=== PATIENT | female | born 1985 | race Caucasian/White ===

== ENCOUNTER 2019-09-11 15:11 | Emergency (ER) | payer OTHER ==
[~2019-09-11] VITALS: Ht 154.9 cm; Wt 82.6 kg
[2019-09-11 17:32] LABS: BASOPHILS # (AUTO) 0.1 (0.0-0.1); BASOPHILS % 0.4 % (0.0-1.0); HEMATOCRIT 39.8 % (34.2-44.1); HEMOGLOBIN 13.4 g/dL (12.0-16.0); LYMPHOCYTES # (AUTO) 1.7 (1.0-3.2); LYMPHOCYTES % 15.3 % (18.0-39.1); MEAN CORPUSCULAR HEMOGLOBIN 29.9 pg (28-32); MEAN CORPUSCULAR HGB CONC 33.7 g/dL (31-35); MEAN CORPUSCULAR VOLUME 88.8 fL (81-99); MONOCYTES # (AUTO) 0.4 (0.2-0.8); MONOCYTES % 3.4 % (4.4-11.3); NEUTROPHILS % 79.2 % (38.7-80.0); PLATELET COUNT 201 x10e3/uL (140-360); RED BLOOD COUNT 4.48 x10e6/uL (3.6-5.1); RED CELL DISTRIBUTION WIDTH 13.1 % (11.7-14.4)
[2019-09-11 17:40] LABS: CLARITY,URINE CLEAR (CLEAR); COLOR,URINE YELLOW (YELLOW); LEUKOCYTE ESTERASE ,URINE NEGATIVE (NEGATIVE); NITRITE,URINE NEGATIVE (NEGATIVE); PROTEIN,URINE DIPSTICK 1+ (NEGATIVE)
[2019-09-11 17:41] LABS: BILIRUBIN,URINE NEGATIVE (NEGATIVE); KETONES,URINE NEGATIVE (NEGATIVE); URINE UROBILINOGEN 1 mg/dL (0.2 - 1)
[2019-09-11 17:50] LABS: ALANINE AMINOTRANSFERASE 351 IU/L (0-55); ALBUMIN 3.7 g/dL (3.5-5.0); ALBUMIN/GLOBULIN RATIO 0.9 (0.8-2.0); ALKALINE PHOSPHATASE 152 IU/L (40-150); ANION GAP 14.5 mmol/L (8-16); BLOOD UREA NITROGEN 10 mg/dL (7-26); BUN/CREATININE RATIO 13 (6-25); CALCIUM 9.3 mg/dL (8.4-10.2); CARBON DIOXIDE 27 mmol/L (22-29); CHLORIDE 100 mmol/L (98-107); CREATINE KINASE 69 IU/L (29-168); CREATININE, SERUM 0.75 mg/dL (0.57-1.11); EST GLOMERULAR FILTRATION RATE > 60 ML/MIN (60-); GLUCOSE 136 mg/dL (74-118); POTASSIUM 3.5 mmol/L (3.5-5.1); SODIUM 138 mmol/L (136-145)
[2019-09-11 17:54] LABS: BACTERIA,URINE MANY /HPF; RBC,URINE 0-5 /HPF (0-5)
[2019-09-11 17:55] LABS: EPITHELIAL CELLS,URINE MODERATE /LPF
--- NOTE | 2019-09-11 18:00 | Diagnostic Imaging Report ---
EXAMINATION: CHEST SINGLE (NOT PORTABLE) INDICATION: ^Y ^FEVER ^[id number] ^[id number] COMPARISON: None FINDINGS: AP view TUBES and LINES: None. LUNGS/PLEURA: Lungs are well inflated. There is no evidence of pneumonia or pulmonary edema.. There is no pleural effusion or pneumothorax. HEART AND MEDIASTINUM: The cardiomediastinal silhouette is unremarkable. BONES AND SOFT TISSUES: No acute osseous lesion. Soft tissues are unremarkable. UPPER ABDOMEN: No free air under the diaphragm. IMPRESSION: No acute thoracic abnormality. Signed by: Last Doan MD on 09/11/2019 5:57 PM
[2019-09-11] MEDS ORDERED: SODIUM CHLORIDE 0.9% 1000ML 1,000 ML IV STA ×2 (18:08)
--- NOTE | 2019-09-11 18:21 | Emergency Department Note ---
History of Present Illnes History of Present Illness Chief Complaint: General Medicine Complaints History of Present Illness This is a 33 year old female arrived to the ED with complaints of generalized malaise and weakness. Patient states she is unable to drink enough fluids and feels very weak and lethargic. Patient states he tested positive for the flu last week. Chief Complaint Comment HERE FOR DEHYDRATION AFTER BEING DIAGNOSED WITH FLU LAST WEEK. ALSO REPORTS LOWER BACK PAIN. STATES THAT SHE IS UNABLE TO REHYDRATE AT HOME, DENIES NAUSEA, VOMITING, OR DIARRHEA. Historian: Patient Arrival Mode: Car Onset (how long ago): day(s) Onset quality: gradual Duration (how long): day(s) Timing of current episode: constant Progression: worsening Chronicity: new Context: Reports recent illness Relieving factors: none Exacerbating factors: none Associated symptoms: Reports fever/chills, Reports loss of appetite, Reports nausea/vomiting Past Medical/Family History Physician Review I have reviewed the patient's past medical and family history. Any updates have been documented here. Past Medical History Recent Fever: No Clinical Suspicion of Infectio: No New/Unexplained Change in Ment: No Past Medical History: None Past Surgical History: Cholecysctectomy Review of Systems Review of Systems Constitutional: Reports as per HPI, Reports chills, Reports fever, Reports weakness EENTM: Reports no symptoms Cardiovascular: Reports no symptoms Respiratory: Reports no symptoms Gastrointestinal: Reports no symptoms Genitourinary: Reports no symptoms Musculoskeletal: Reports no symptoms Integumentary: Reports no symptoms Neurological: Reports no symptoms Psychological: Reports no symptoms Endocrine: Reports no symptoms Hematological/Lymphatic: Reports no symptoms Physical Exam Related Data Allergies: Coded Allergies: codeine (Verified Adverse Reaction, Severe, HEADACHE, 09/11/19) Triage Vital Signs Vital Signs Date Time Temp Pulse Resp B/P (MAP) Pulse Ox O2 Delivery O2 Flow Rate FiO2 09/11/19 16:21 98.3 115 16 133/90 99 Vital signs reviewed: Yes Physical Exam CONSTITUTIONAL Constitutional: Present well-developed, Present well-nourished HENT HENT: Present normocephalic, Present atraumatic, Present oropharynx clear/moist, Present nose normal HENT L/R: Present left ext ear normal, Present right ext ear normal EYES Eyes: Reports PERRL, Reports conjunctivae normal NECK Neck: Present ROM normal PULMONARY Pulmonary: Present effort normal, Present breath sounds normal CARDIOVASCULAR Cardiovascular: Present regular rhythm, Present heart sounds normal, Present capillary refill normal, Present normal rate GASTROINTESTINAL Abdominal: Present soft, Present nontender, Present bowel sounds normal GENITOURINARY Genitourinary: Present exam deferred SKIN Skin: Present warm, Present dry MUSCULOSKELETAL Musculoskeletal: Present ROM normal NEUROLOGICAL Neurological: Present alert, Present oriented x 3, Present no gross motor or sensory deficits PSYCHOLOGICAL Psychological: Present mood/affect normal, Present judgement normal Results Laboratory Result Diagram: 09/11/193 09/11/193 Laboratory Laboratory Tests Test 09/11/19 16:53 White Blood Count 11.32 x10e3/uL (4.8-10.8) Red Blood Count 4.48 x10e6/uL (3.6-5.1) Hemoglobin 13.4 g/dL (12.0-16.0) Hematocrit 39.8 % (34.2-44.1) Mean Corpuscular Volume 88.8 fL (81-99) Mean Corpuscular Hemoglobin 29.9 pg (28-32) Mean Corpuscular Hemoglobin Concent 33.7 g/dL (31-35) Red Cell Distribution Width 13.1 % (11.7-14.4) Platelet Count 201 x10e3/uL (140-360) Neutrophils (%) (Auto) 79.2 % (38.7-80.0) Lymphocytes (%) (Auto) 15.3 % (18.0-39.1) Monocytes (%) (Auto) 3.4 % (4.4-11.3) Eosinophils (%) (Auto) 0.0 % (0.0-6.0) Basophils (%) (Auto) 0.4 % (0.0-1.0) Neutrophils # (Auto) 9.0 (2.1-6.9) Lymphocytes # (Auto) 1.7 (1.0-3.2) Monocytes # (Auto) 0.4 (0.2-0.8) Eosinophils # (Auto) 0.0 (0.0-0.4) Basophils # (Auto) 0.1 (0.0-0.1) Absolute Immature Granulocyte (auto 0.19 x10e3/uL (0-0.1) Urine Color Yellow (YELLOW) Urine Clarity Clear (CLEAR) Urine pH 6 (5 - 7) Urine Specific [place] 1.020 (1.010-1.025) Urine Protein 1+ (NEGATIVE) Urine Glucose (UA) Negative (NEGATIVE) Urine Ketones Negative (NEGATIVE) Urine Blood Negative (NEGATIVE) Urine Nitrite Negative (NEGATIVE) Urine Bilirubin Negative (NEGATIVE) Urine Urobilinogen 1 mg/dL (0.2 - 1) Urine Leukocyte Esterase Negative (NEGATIVE) Urine RBC 0-5 /HPF (0-5) Urine WBC 11-20 /HPF (0-5) Urine Epithelial Cells Moderate /LPF (NONE) Urine Bacteria Many /HPF (NONE) Sodium Level 138 mmol/L (136-145) Potassium Level 3.5 mmol/L (3.5-5.1) Chloride Level 100 mmol/L (98-107) Carbon Dioxide Level 27 mmol/L (22-29) Anion Gap 14.5 mmol/L (8-16) Blood Urea Nitrogen 10 mg/dL (7-26) Creatinine 0.75 mg/dL (0.57-1.11) Estimat Glomerular Filtration Rate > 60 ML/MIN (60-) BUN/Creatinine Ratio 13 (6-25) Glucose Level 136 mg/dL (74-118) Calcium Level 9.3 mg/dL (8.4-10.2) Total Bilirubin 0.9 mg/dL (0.2-1.2) Aspartate Amino Transf (AST/SGOT) 213 IU/L (5-34) Alanine Aminotransferase (ALT/SGPT) 351 IU/L (0-55) Alkaline Phosphatase 152 IU/L (40-150) Creatine Kinase 69 IU/L (29-168) Creatine Kinase MB 0.40 ng/mL (0-5.0) Troponin I < 0.001 ng/mL (0-0.300) Total Protein 7.7 g/dL (6.5-8.1) Albumin 3.7 g/dL (3.5-5.0) Globulin 4.0 g/dL (2.3-3.5) Albumin/Globulin Ratio 0.9 (0.8-2.0) Lab results reviewed: Yes Assessment & Plan Medical Decision Making MDM 33-year-old female arrived to the ED with complaints of weakness and generalized malaise. Patient states he tested positive for the flu. On arrival to the emergency department patient appeared ill, tachycardic on exam. Patient noted to have marked LFT elevation. CT abdomen and pelvis ordered, aggressive fluid resuscitation done with 2 L of MS. Patient discussed with Dr. Zhang and sign out given to follow-up CT abdomen and pelvis and dispo patient. Assessment & Plan Final Impression: (1) Abdominal pain Depart Disposition: HOME, SELF-CARE Last Vital Signs Date Time Temp Pulse Resp B/P (MAP) Pulse Ox O2 Delivery O2 Flow Rate FiO2 09/11/19 16:21 98.3 115 16 133/90 99 Medications in the ED Sodium Chloride 1,000 ml @ 0 mls/hr Q0M STAT IV ; Start 09/11/19 at 18:08; Stop 09/11/19 at 18:10; Status DC Sodium Chloride 1,000 ml @ 0 mls/hr Q0M STAT IV ; Start 09/11/19 at 18:08; Stop 09/11/19 at 18:10; Status DC ANDRES BARRETO DO Sep 11, 2019 18:21
[2019-09-11] MEDS ORDERED: ACETAMINOPHEN 325 MG TAB PO ONE (19:30)
[2019-09-11] MEDS ORDERED: ACETAMINOPHEN 325 MG TAB ONE (19:32)
[2019-09-11] MEDS ORDERED: IOPAMIDOL 370 MG/ML 200 ML INFUS..BTL INJ ONE (19:37)
[2019-09-11] MEDS ORDERED: SODIUM CHLORIDE 0.9% 50ML 50 ML ONE (19:37)
--- NOTE | 2019-09-11 20:54 | Diagnostic Imaging Report ---
EXAM: CT Chest WITH contrast 09/11/2019 7:55 PM INDICATION: ^Y ^r/o PE COMPARISON: None TECHNIQUE: Chest was scanned utilizing a multidetector helical scanner from the lung apex through the level of the adrenal glands without administration of IV contrast. Coronal and sagittal reformations were obtained. PE protocol was performed. IV CONTRAST: 100 mL of Omnipaque 300 COMPLICATIONS: None RADIATION DOSE: Total DLP: 1289.54 mGy*cm combined with abdomen Estimated effective dose: (DLP x 0.014 x size factor) mSv CTDIvol has been reviewed. It is below the limits set by the Radiation Protocol Committee (RPC). FINDINGS: LINES/ TUBES: None. LUNGS AND AIRWAYS: There is a 1.0 cm nodular opacity in the left lower lobe (series 3, image 76). There is a calcified granuloma in the right lower lobe. Small foci of atelectasis/scar is seen in left lung base. No filling defect is identified within the pulmonary arteries to the segmental level. PLEURA: The pleural spaces are clear. HEART AND MEDIASTINUM: The thyroid gland is normal. No mediastinal, hilar or axillary lymphadenopathy. The heart is normal in size.. There is no pericardial effusion. UPPER ABDOMEN: Please refer to the report for same day CT abdomen. BONES: Unremarkable. SOFT TISSUES: Unremarkable. IMPRESSION: 1. No pulmonary embolism. 2. A 1.0 cm nodular opacity in the left lower lobe could be focal area of atelectasis. Recommend follow-up chest CT based on Fleischner criteria to exclude underlying lung nodule/mass. Signed by: Last Doan MD on 09/11/2019 8:51 PM
--- NOTE | 2019-09-11 21:01 | Diagnostic Imaging Report ---
EXAM: CT Abdomen and Pelvis WITH contrast INDICATION: abd pain COMPARISON: CT abdomen pelvis dated 11/25/2010 (images are not available for review). TECHNIQUE: Abdomen and pelvis were scanned utilizing a multidetector helical scanner from the lung base to the pubic symphysis after administration of IV contrast. Coronal and sagittal reformations were obtained. Dose modulation, iterative reconstruction, and/or weight based adjustment of the mA/kV was utilized to reduce the radiation dose to as low as reasonably achievable. Routine protocol was performed. Scan was performed when during portal venous phase. IV CONTRAST: 150 mL of Omnipaque 300 ORAL CONTRAST: Water COMPLICATIONS: None RADIATION DOSE: Total DLP: 1289.54 mGy*cm combined with CT chest Estimated effective dose: (DLP x 0.015 x size factor) mSv CTDIvol has been reviewed. It is below the limits set by the Radiation Protocol Committee (RPC). FINDINGS: LINES and TUBES: None. LOWER THORAX: Please refer to the report for same day CT chest. HEPATOBILIARY: No focal hepatic lesions. No biliary ductal dilation. GALLBLADDER: No radio-opaque stones or sludge. No gallbladder wall thickening. SPLEEN: No splenomegaly. No focal splenic lesion. PANCREAS: No focal masses or ductal dilatation. ADRENALS: No adrenal nodules KIDNEYS/URETERS: Kidneys enhance symmetrically. No hydronephrosis. No cystic or solid mass lesions. No stones. GI TRACT: No abnormal distention, wall thickening, or evidence of bowel obstruction. PELVIC ORGANS/BLADDER: The bladder is unremarkable. Bilateral adnexal tubal structures could represents hydrosalpinx. In addition there are bilateral ovarian cysts which could be physiologic for age. LYMPH NODES: No lymphadenopathy. VESSELS: No aortic aneurysm or dissection. PERITONEUM / RETROPERITONEUM: No free air or fluid. BONES: Unremarkable. SOFT TISSUES: Unremarkable. IMPRESSION: Bilateral adnexal tubal structures could represents hydrosalpinx. This can be further evaluated with pelvic ultrasound. Signed by: Last Doan MD on 09/11/2019 8:57 PM
[2019-09-11] MEDS ORDERED: IBUPROFEN 600 MG TAB PO STA ×2 (22:34→22:36)
[2019-09-11] MEDS ORDERED: CEFTRIAXONE SOD 1 GM/NS 50 ML 50 ML IV ONE (22:45)
[2019-09-11] MEDS ORDERED: IBUPROFEN 600 MG TAB ONE (22:48)
--- NOTE | 2019-09-12 00:58 | Diagnostic Imaging Report ---
EXAM: Transabdominal and Transvaginal Pelvic Ultrasound INDICATION: ^eval for hydrosalpinx, tubo ovarian abscess ^Y COMPARISON: CT abdomen and pelvis 09/11/2019 TECHNIQUE: Grayscale transverse and sagittal transabdominal and transvaginal images were obtained of the pelvis. Transvaginal imaging was medically necessary to better evaluate the endometrium. CLINICAL HISTORY: 33 year old ; last menstrual period: 08/22/2019. FINDINGS: Uterus: Orientation: Anteverted Size: 7.6 x 4.2 x 5.5 cm, Normal Mass: None Cervix: Normal Endometrium: Thickness: 0.6 cm, Normal. Appearance: Homogeneous echotexture without focal thickening. Right ovary: Size: 4.6 x 2.0 x 3.0 cm Mass/Cyst: None. 2.0 x 1.3 x 1.5 cm cystic, anechoic dominant follicle. Left ovary: Size: 3.5 x 1.9 x 3.1 cm Mass/Cyst: None. Normal anechoic follicles are identified. Adnexa: Normal Cul-de-sac: Small amount of free fluid in the pelvic cul-de-sac, likely physiological IMPRESSION: Essentially unremarkable pelvic ultrasound exam. No evidence of hydrosalpinx or tubo-ovarian abscess. Signed by: Dr. Arturo Contreras M.D. on 09/12/2019 12:54 AM
[2019-09-12 01:17] VITALS: BP 132/78
== END 2019-09-12 01:18 | disposition home or self-care (01) ==
LOC: ER 15:11
DX: R53.1 Weakness (principal); R53.81 Other malaise; R10.30 Lower abdominal pain, unspecified; R11.2 Nausea with vomiting, unspecified; M54.5 Low back pain
CPT/HCPCS: 36415; 71045; 71260; 74177; 76830; 76856; 80053; 81001; 81025; 82550; 82553; 84484; 85025; 99284; J0696; J7030; Q9967